=== PATIENT | male | born 1985 | race American Indian/Alaskan Native ===

== ENCOUNTER 2020-09-22 03:55 | Emergency (ER) | payer SELFPAY ==
[2020-09-22 04:08] VITALS: BP 172/90
--- NOTE | 2020-09-22 04:45 | XRay Report ---
RIGHT FOOT 3 VIEWS INDICATION / CLINICAL INFORMATION: Right foot pain COMPARISON: None available. FINDINGS: BONES / JOINT(S): There is mild hallux valgus. No significant arthritis. There is no evidence of frac ture or subluxation. SOFT TISSUES: No significant abnormality. ADDITIONAL FINDINGS: None. Signer Name: Hermann Lawton MD Signed: 09/22/2020 4:41 AM Workstation Name: [id number]
[2020-09-22] MEDS ORDERED: KETOROLAC 30 MG/1 ML INJ IM ONE (05:40)
--- NOTE | 2020-09-22 05:48 | Emergency Department Report ---
ED Back Pain/Injury HPI - General Chief Complaint: Extremity Injury, Lower Stated Complaint: RIGHT FOOT PAIN Time Seen by Provider: 09/22/20 05:34 Source: patient Limitations: No Limitations - History of Present Illness MD Complaint: back pain, back injury - Related Data Allergies Allergy/AdvReac Type Severity Reaction Status Date / Time No Known Allergies Allergy Unverified 09/22/20 04:08 ED Review of Systems ROS: Stated complaint: RIGHT FOOT PAIN Other details as noted in HPI ED Past Medical Hx - Past Medical History Previous Medical History?: Yes Hx Hypertension: Yes - Surgical History Past Surgical History?: No - Social History Smoking Status: Current Every Day Smoker Substance Use Type: Marijuana ED Physical Exam - General Limitations: No Limitations ED Course Vital Signs 09/22/20 04:03 Temperature 98 F Pulse Rate 114 H Respiratory 16 Rate Blood Pressure 172/90 O2 Sat by Pulse 97 Oximetry Critical care attestation.: If time is entered above; I have spent that time in minutes in the direct care of this critically ill patient, excluding procedure time. ED Disposition Condition: Stable Referrals: PRIMARY CARE [Primary Care Provider] - 3-5 Days
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
== END 2020-09-22 06:41 | disposition home or self-care (01) ==
LOC: ED 03:55
DX: S93.601A Unspecified sprain of right foot, initial encounter (principal); I10 Essential (primary) hypertension; F17.200 Nicotine dependence, unspecified, uncomplicated; F12.10 Cannabis abuse, uncomplicated; X58.XXXA Exposure to other specified factors, initial encounter; Y93.89 Activity, other specified; Y92.89 Other specified places as the place of occurrence of the external cause; Y99.8 Other external cause status
CPT/HCPCS: 73630; 96372; 99284; J1885